=== PATIENT | female | born 1935 | race Two or more races ===

== ENCOUNTER 2018-10-18 05:20 | Day surgery (SDC) | payer OTHER ==
[~2018-10-18 05:20] MED LIST: ASPIR-LOW81 MG PO; GABAPENTIN400 MG PO; LOSARTAN POTASS50 MG PO; NABUMETONE500 MG PO; NAPROXEN500 MG PO; PERCOCET 5-3251 EACH PO; PROLIA60 MG/1 ML; TIZANIDINE HCL4 M1 PO; TRAM1TAB98 PO; VITAMIN E & D B52 ML PO; ZANTAC150 M3 PO; [UNRECOGNIZED DRUG - OTHER] PO
== END 2018-10-18 16:55 | disposition home or self-care (01) ==
LOC: CIR.AMB 05:20
DX: M65.342 Trigger finger, left ring finger (principal); M65.332 Trigger finger, left middle finger; G56.02 Carpal tunnel syndrome, left upper limb